=== PATIENT | male | born 1955 | race Caucasian/White ===

== ENCOUNTER 2020-06-01 19:08 | Day surgery (SDC) | payer MEDICARE, OTHER ==
[~2020-06-01] VITALS: Ht 172 cm; Wt 82.7 kg
[2020-06-01] MEDS: NS IV 1000 ML 1,000 ML IV SCH ×2 (10:30→22:30)
[2020-06-01] MEDS ORDERED: BISACODYL 10 MG SUPP (DULCOLAX) PR STA (19:37)
[2020-06-01] MEDS ORDERED: fentaNYL INJ 100 MCG/2 ML AMP IVP ONE ×2 (19:45→21:30)
[2020-06-01] MEDS ORDERED: ONDANSETRON 4 MG/2 ML (SDV) Z0FRAN IVP ONE (19:45)
[2020-06-01 19:49] LABS: BILIRUBIN,URINE NEGATIVE (NEGATIVE); CLARITY,URINE CLEAR; COLOR,URINE AMBER; GLUCOSE, URINE (UA) NEGATIVE (NEGATIVE); KETONES,URINE 2+ (NEGATIVE); LEUKOCYTE ESTERASE ,URINE NEGATIVE (NEGATIVE); NITRITE,URINE NEGATIVE (NEGATIVE); PROTEIN,URINE 1+ (NEGATIVE)
[2020-06-01 20:01] LABS: BASOPHILS # (AUTO) 0.1 10^3/uL (0.0-0.1); BASOPHILS % (AUTO) 0 % (0-10); EOSINOPHILS % (AUTO) 0 % (0-10); HEMATOCRIT 43 % (40-54); HEMOGLOBIN 14.4 g/dL (13.3-17.7); LYMPHOCYTES # (AUTO) 0.7 10^3/uL (1.0-4.0); LYMPHOCYTES % (AUTO) 4 % (12-44); MEAN CORPUSCULAR HEMOGLOBIN 30 pg (25-34); MEAN CORPUSCULAR HGB CONC 33 g/dL (32-36); MEAN CORPUSCULAR VOLUME 90 fL (80-99); MEAN PLATELET VOLUME 8.1 fL (9.0-12.2); MONOCYTES # (AUTO) 0.7 10^3/uL (0.0-1.0); MONOCYTES % (AUTO) 4 % (0-12); NEUTROPHILS # (AUTO) 16.1 10^3/uL (1.8-7.8); NEUTROPHILS % (AUTO) 92 % (42-75); PLATELET COUNT 355 10^3/uL (130-400); WHITE BLOOD COUNT 17.5 10^3/uL (4.3-11.0)
--- NOTE | 2020-06-01 20:05 | ED Abdominal Pain ---
General Chief Complaint: Abdominal/GI Problems Stated Complaint: ABD PAIN / CONSTIPATION / SOA History of Present Illness Date Seen by Provider: Jun 01, 2020 Time Seen by Provider: 19:30 Initial Comments 64-year-old male presents for acute abdominal pain. Patient reports that his pain began on 05/30/2020. He has been having intermittent nausea and vomiting since then he has not been able to eat anything without vomiting. No known history of abdominal problems or surgeries in the past. He does not take any medication. He reports being constipated for the last 4 days, with no flatus. He has tried stool softeners with no success. Timing/Duration: 3-4 Days Severity/Quality: Moderate Location: Generalized Abdomen Radiation: No Radiation Modifying Factors: Improves With Resting, Improves With Vomiting Associated Symptoms: No Back Pain, No Chest Pain, No Diaphoresis, No Fever/Chills, No Headache, No Heartburn; Nausea/Vomiting, Swelling/Mass in Abdomen Allergies and Home Medications Allergies Coded Allergies: No Known Drug Allergies (Unverified , 06/01/20) Patient Home Medication List Home Medication List Reviewed: Yes Review of Systems Review of Systems Constitutional: no symptoms reported, see HPI Gastrointestinal: See HPI, Abdomen Distended, Abdominal Pain, Constipated, Nausea, Poor Appetite; Denies Rectal Bleeding; Vomiting Genitourinary: No Symptoms Reported, See HPI Skin: no symptoms reported, see HPI All Other Systems Reviewed Negative Unless Noted: Yes Past Kusunya-Pxhcjf-Tklspw Hx Past Med/Social Hx: Reviewed Nursing Past Med/Soc Hx Patient Social History Alcohol Use: Denies Use Recent Hopitalizations: No Immunizations Up To Date Tetanus Booster (TDap): Less than 5yrs PED Vaccines UTD: Yes Seasonal Allergies Seasonal Allergies: No Past Medical History Surgeries: No Respiratory: No Cardiac: No Neurological: No Genitourinary: No Gastrointestinal: No Musculoskeletal: No Endocrine: No HEENT: No Cancer: No Psychosocial: No Integumentary: No Blood Disorders: No Physical Exam Vital Signs Vital Signs - First Documented 06/01/20 19:27 Temp 36.8 Pulse 122 Resp 24 B/P (MAP) 166/93 (117) Pulse Ox 98 O2 Delivery Room Air Capillary Refill : Height/Weight/BMI Height: '" Weight: lbs. oz. kg; BMI Method: General Appearance: WD/WN, mild distress (Secondary to pain) HEENT: PERRL/EOMI, normal ENT inspection, TMs normal, pharynx normal, other Neck: non-tender, full range of motion, supple, normal inspection Respiratory: chest non-tender, lungs clear, normal breath sounds Cardiovascular: normal peripheral pulses, regular rate, rhythm Gastrointestinal: no pulsatile mass, abnormal bowel sounds (Hypoactive), distended; No rebound; tenderness, other (Positive Solomon sign) Extremities: normal range of motion, non-tender, normal inspection, normal capillary refill Neurologic/Psychiatric: no motor/sensory deficits, alert, normal mood/affect, oriented x 3 Skin: normal color, warm/dry Progress/Results/Core Measures Results/Orders Lab Results Laboratory Tests Test 06/01/20 19:42 06/01/20 19:52 Range/Units Urine Color MARC H Urine Clarity CLEAR Urine pH 7.0 5-9 Urine Specific [place] 1.020 1.016-1.022 Urine Protein 1+ H NEGATIVE Urine Glucose (UA) NEGATIVE NEGATIVE Urine Ketones 2+ H NEGATIVE Urine Nitrite NEGATIVE NEGATIVE Urine Bilirubin NEGATIVE NEGATIVE Urine Urobilinogen 1.0 < = 1.0 MG/DL Urine Leukocyte Esterase NEGATIVE NEGATIVE Urine RBC (Auto) NEGATIVE NEGATIVE Urine RBC NONE /HPF Urine WBC NONE /HPF Urine Crystals NONE /LPF Urine Bacteria TRACE /HPF Urine Casts NONE /LPF Urine Mucus LARGE H /LPF Urine Culture Indicated NO White Blood Count 17.5 H 4.3-11.0 10^3/uL Red Blood Count 4.79 4.30-5.52 10^6/uL Hemoglobin 14.4 13.3-17.7 g/dL Hematocrit 43 40-54 % Mean Corpuscular Volume 90 80-99 fL Mean Corpuscular Hemoglobin 30 25-34 pg Mean Corpuscular Hemoglobin Concent 33 32-36 g/dL Red Cell Distribution Width 12.0 10.0-14.5 % Platelet Count 355 130-400 10^3/uL Mean Platelet Volume 8.1 L 9.0-12.2 fL Immature Granulocyte % (Auto) 0 % Neutrophils (%) (Auto) 92 H 42-75 % Lymphocytes (%) (Auto) 4 L 12-44 % Monocytes (%) (Auto) 4 0-12 % Eosinophils (%) (Auto) 0 0-10 % Basophils (%) (Auto) 0 0-10 % Neutrophils # (Auto) 16.1 H 1.8-7.8 10^3/uL Lymphocytes # (Auto) 0.7 L 1.0-4.0 10^3/uL Monocytes # (Auto) 0.7 0.0-1.0 10^3/uL Eosinophils # (Auto) 0.0 0.0-0.3 10^3/uL Basophils # (Auto) 0.1 0.0-0.1 10^3/uL Immature Granulocyte # (Auto) 0.1 0.0-0.1 10^3/uL Neutrophils % (Manual) 91 % Lymphocytes % (Manual) 7 % Monocytes % (Manual) 2 % Blood Morphology Comment NORMAL Prothrombin Time 14.2 12.2-14.7 SEC INR Comment 1.1 0.8-1.4 Activated Partial Thromboplast Time 29 24-35 SEC Sodium Level 137 135-145 MMOL/L Potassium Level 4.1 3.6-5.0 MMOL/L Chloride Level 98 98-107 MMOL/L Carbon Dioxide Level 29 21-32 MMOL/L Anion Gap 10 5-14 MMOL/L Blood Urea Nitrogen 16 7-18 MG/DL Creatinine 1.03 0.60-1.30 MG/DL Estimat Glomerular Filtration Rate > 60 BUN/Creatinine Ratio 16 Glucose Level 154 H 70-105 MG/DL Calcium Level 9.3 8.5-10.1 MG/DL Corrected Calcium 9.1 8.5-10.1 MG/DL Total Bilirubin 2.9 H 0.1-1.0 MG/DL Aspartate Amino Transf (AST/SGOT) 191 H 5-34 U/L Alanine Aminotransferase (ALT/SGPT) 160 H 0-55 U/L Alkaline Phosphatase 185 H 40-136 U/L C-Reactive Protein High Sensitivity 12.08 H 0.00-0.50 MG/DL B-Type Natriuretic Peptide < 10.0 <100.0 PG/ML Total Protein 7.3 6.4-8.2 GM/DL Albumin 4.2 3.2-4.5 GM/DL Amylase Level 38 25-125 U/L My Orders Orders - CRIS NICOLAS Ct Abdomen/Pelvis Wo (06/01/20 19:37) Amylase (06/01/20 19:37) BNP (06/01/20 19:37) Cbc With Automated Diff (06/01/20 19:37) Comprehensive Metabolic Panel (06/01/20 19:37) Hs C Reactive Protein (06/01/20 19:37) Protime With Inr (06/01/20 19:37) Partial Thromboplastin Time (06/01/20 19:37) Ua Culture If Indicated (06/01/20 19:37) Ondansetron Injection (Zofran Injectio (06/01/20 19:45) Bisacodyl Suppository (Dulcolax Supposit (06/01/20 19:37) Fentanyl Inj (Sublimaze Injection) (06/01/20 19:45) Manual Differential (06/01/20 19:52) Ed Iv/Invasive Line Start (06/01/20 20:35) Ns Iv 1000 Ml (Sodium Chloride 0.9%) (06/01/20 20:45) Lipase (06/01/20 20:59) Medications Given in ED Current Medications Medications Dose Ordered Sig/Shaun Route Start Time Stop Time Status Last Admin Dose Admin Fentanyl Citrate 25 mcg ONCE ONCE IVP 06/01/20 19:45 06/01/20 19:46 DC 06/01/20 20:23 25 MCG Ondansetron HCl 8 mg ONCE ONCE IVP 06/01/20 19:45 06/01/20 19:46 DC 06/01/20 20:23 8 MG Vital Signs/I&O 06/01/20 19:27 Temp 36.8 Pulse 122 Resp 24 B/P (MAP) 166/93 (117) Pulse Ox 98 O2 Delivery Room Air Progress Progress Note : Time: 19:30 Progress Note Patient seen and evaluated. Will obtain CT abdomen, labs, normal saline 1 L IV, Zofran 8 mg IV and fentanyl 25 mcg IV. 2014 patient reports some improvement in his pain since receiving the fentanyl. Labs show elevated white count, awaiting CT. 2099 CT shows cholecystitis. Discussed patient's labs, CT and exam with Dr. Meadows by phone, recommended admission and plan for laparoscopic cholecystectomy tomorrow. Discussed this with the patient and his they are in agreement with this plan. Patient to be admitted by Dr. Meadows and will have consult with hospitalist. Talk to Dr. Das, agreeable and will have Dr. Rasmussen see patient in the morning. Zosyn for antibiotic per Dr. Meadows. Will start now. 2114 patient reporting increased abdominal pain, will give fentanyl 50 mcg IV. Diagnostic Imaging Diagonstic Imaging: CT Plain Films/CT/US/NM/MRI: abdomen, pelvis Comments NAME: QI [facility]ILLIL[facility] II [facility] REC#: [id number] PT STATUS: REG ER : 1955 PHYSICIAN: CRIS NICOLAS ADMIT DATE: 06/01/20/ER Draft Date of Exam:06/01/20 CT ABDOMEN/PELVIS WO EXAMINATION: CT Abdomen Pelvis without contrast. TECHNIQUE: Multiple contiguous axial images were obtained through the abdomen and pelvis without the use of intravenous contrast. All CT scans use one or more of the following dose optimizing techniques: automated exposure control, MA and/or KvP adjustment based on a patient size and exam type, or iterative reconstruction. HISTORY: abd pain, constipation, vomiting COMPARISON: None available. FINDINGS: Lung bases: Bibasilar dependent atelectasis. There is a 0.3 cm left lower lobe subpleural pulmonary nodule. Solid organs: The liver is normal. There is mild gallbladder wall thickening and surrounding inflammatory stranding. There is no biliary ductal dilation. Pancreas is normal. There are multiple calcified granulomas within the spleen. Adrenal glands are normal. The kidneys are normal without visualized calculus or hydronephrosis. Bowel: There is mild wall thickening and inflammation near the 2nd portion of the duodenum. The bowel is otherwise unremarkable without obstruction. There are a few scattered colonic diverticula. No findings of acute appendicitis. Peritoneum: There is no intraperitoneal free fluid or free air. No suspicious lymphadenopathy. Vasculature: Calcification of the aorta without aneurysm. Musculoskeletal: Degenerative changes of the spine without suspicious osseous lesion or compression fracture. Pelvis: The prostate gland is normal. The urinary bladder is normal. IMPRESSION: 1. Gallbladder wall thickening and surrounding inflammation concerning for acute cholecystitis. Recommend correlation with gallbladder ultrasound. 2. Mild wall thickening of the 2nd portion of the duodenum may be reactive. Dictated on workstation # [id number] Dict: 06/01/202003 Trans: 06/01/202010 CVB [id number] Interpreted by: MARTY ARGUETA DO Electronically signed by: Reviewed: Reviewed by Me Departure Impression Primary Impression: Nausea and vomiting Qualified Codes: R11.14 - Bilious vomiting Additional Impressions: Abdominal wall pain Constipation Qualified Codes: K59.00 - Constipation, unspecified Disposition: ADMITTED INPATIENT Condition: Stable Admissions Decision to Admit Reason: Admit from ER (General) Decision to Admit/Date: Jun 01, 2020 Time/Decision to Admit Time: 21:00 Departure-Patient Inst. Referrals: [facility] – [place] NO,LOCAL PHYSICIAN (PCP) Primary Care Physician Copy Copies To 1: TONY MEADOWS AMY ARNP Jun 01, 2020 20:05
[2020-06-01 20:12] LABS: ALBUMIN 4.2 GM/DL (3.2-4.5)
--- NOTE | 2020-06-01 20:12 | Diagnostic Imaging Report ---
EXAMINATION: CT Abdomen Pelvis without contrast. TECHNIQUE: Multiple contiguous axial images were obtained through the abdomen and pelvis without the use of intravenous contrast. All CT scans use one or more of the following dose optimizing techniques: automated exposure control, MA and/or KvP adjustment based on a patient size and exam type, or iterative reconstruction. HISTORY: abd pain, constipation, vomiting COMPARISON: None available. FINDINGS: Lung bases: Bibasilar dependent atelectasis. There is a 0.3 cm left lower lobe subpleural pulmonary nodule. Solid organs: The liver is normal. There is mild gallbladder wall thickening and surrounding inflammatory stranding. There is no biliary ductal dilation. Pancreas is normal. There are multiple calcified granulomas within the spleen. Adrenal glands are normal. The kidneys are normal without visualized calculus or hydronephrosis. Bowel: There is mild wall thickening and inflammation near the 2nd portion of the duodenum. The bowel is otherwise unremarkable without obstruction. There are a few scattered colonic diverticula. No findings of acute appendicitis. Peritoneum: There is no intraperitoneal free fluid or free air. No suspicious lymphadenopathy. Vasculature: Calcification of the aorta without aneurysm. Musculoskeletal: Degenerative changes of the spine without suspicious osseous lesion or compression fracture. Pelvis: The prostate gland is normal. The urinary bladder is normal. IMPRESSION: 1. Gallbladder wall thickening and surrounding inflammation concerning for acute cholecystitis. Recommend correlation with gallbladder ultrasound. 2. Mild wall thickening of the 2nd portion of the duodenum may be reactive. Dictated by: Dictated on workstation # [id number]
[2020-06-01 20:13] LABS: AMYLASE 38 U/L (25-125); CALCIUM 9.3 MG/DL (8.5-10.1)
[2020-06-01 20:14] LABS: GLUCOSE 154 MG/DL (70-105)
[2020-06-01 20:15] LABS: TOTAL PROTEIN 7.3 GM/DL (6.4-8.2)
[2020-06-01 20:16] LABS: BILIRUBIN,TOTAL 2.9 MG/DL (0.1-1.0); CARBON DIOXIDE 29 MMOL/L (21-32)
[2020-06-01 20:18] LABS: ALKALINE PHOSPHATASE 185 U/L (40-136); CREATININE SERUM 1.03 MG/DL (0.60-1.30); GFR ESTIMATED > 60
[2020-06-01 20:19] LABS: BUN/CREATININE RATIO 16
[2020-06-01 20:21] LABS: BACTERIA,URINE TRACE /HPF
[2020-06-01 20:21] LABS: ALANINE AMINOTRANSFERASE 160 U/L (0-55)
[2020-06-01 20:27] LABS: INR 1.1 (0.8-1.4); PROTHROMBIN TIME PATIENT 14.2 SEC (12.2-14.7)
[2020-06-01 20:31] LABS: CHLORIDE 98 MMOL/L (98-107); POTASSIUM 4.1 MMOL/L (3.6-5.0); SODIUM 137 MMOL/L (135-145)
[2020-06-01] MEDS ORDERED: NS IV 1000 ML 1,000 ML IV SCH (20:45)
[2020-06-01 20:57] LABS: LYMPHOCYTES % (MANUAL) 7 %; MONOCYTES % (MANUAL) 2 %; NEUTROPHILS % (MANUAL) 91 %; RBC MORPH NORMAL
[2020-06-01] MEDS ORDERED: PIPERACILLIN/TAZOBACTAM (BULK) 4.5 GM in NS (IVPB) 100 ML IV ONE (21:15)
[2020-06-01] MEDS ORDERED: PIPERACILLIN SODIUM/TAZOBACTAM 4.5 GM in NS (IVPB) 100 ML IV ONE (21:30)
[2020-06-01 22:07] VITALS: BP 126/65
[2020-06-01 23:43] VITALS: BP 103/64
[2020-06-01] MEDS ORDERED: ONDANSETRON 4 MG/2 ML (SDV) Z0FRAN IV PRN (23:45)
[2020-06-01] MEDS ORDERED: fentaNYL INJ 100 MCG/2 ML AMP IV PRN (23:45)
[2020-06-01] MEDS ORDERED: ACETAMINOPHEN 325 MG TABLET PO PRN (23:45)
[2020-06-02] VITALS (9 sets, daily range): BP systolic 94–133; BP diastolic 52–78
[2020-06-02] MEDS ORDERED: NS (IVPB) 100 ML ONE (03:53)
[2020-06-02] MEDS ORDERED: PIPERACILLIN/TAZO 4.5 GM VIAL (ZOSYN) IV ONE (03:53)
[2020-06-02] MEDS ORDERED: PIPERACILLIN/TAZO 4.5 GM/NS 100 ML IV SCH ×2 (04:00)
[2020-06-02 05:49] LABS: BASOPHILS % (AUTO) 0 % (0-10); EOSINOPHILS % (AUTO) 0 % (0-10); HEMATOCRIT 37 % (40-54); HEMOGLOBIN 12.5 g/dL (13.3-17.7); LYMPHOCYTES # (AUTO) 0.4 10^3/uL (1.0-4.0); LYMPHOCYTES % (AUTO) 2 % (12-44); MEAN CORPUSCULAR HEMOGLOBIN 30 pg (25-34); MEAN CORPUSCULAR HGB CONC 34 g/dL (32-36); MEAN CORPUSCULAR VOLUME 90 fL (80-99); MEAN PLATELET VOLUME 8.4 fL (9.0-12.2); MONOCYTES # (AUTO) 0.5 10^3/uL (0.0-1.0); MONOCYTES % (AUTO) 3 % (0-12); NEUTROPHILS # (AUTO) 16.1 10^3/uL (1.8-7.8); NEUTROPHILS % (AUTO) 94 % (42-75); PLATELET COUNT 251 10^3/uL (130-400); WHITE BLOOD COUNT 17.1 10^3/uL (4.3-11.0)
[2020-06-02] MEDS ORDERED: FLEET ENEMA ADULT 1 EA BTL PR PRN (06:00)
[2020-06-02 06:09] LABS: NEUTROPHILS % (MANUAL) 80 %
[2020-06-02 06:10] LABS: BAND NEUTROPHILS 13 %; LYMPHOCYTES % (MANUAL) 5 %; MONOCYTES % (MANUAL) 2 %; RBC MORPH NORMAL
[2020-06-02 06:15] LABS: ALANINE AMINOTRANSFERASE 191 U/L (0-55); ALBUMIN 3.3 GM/DL (3.2-4.5); ALKALINE PHOSPHATASE 178 U/L (40-136); BILIRUBIN,TOTAL 4.9 MG/DL (0.1-1.0); BUN/CREATININE RATIO 14; CALCIUM 8.1 MG/DL (8.5-10.1); CARBON DIOXIDE 23 MMOL/L (21-32); CHLORIDE 104 MMOL/L (98-107); CREATININE SERUM 0.91 MG/DL (0.60-1.30); GFR ESTIMATED > 60; GLUCOSE 112 MG/DL (70-105); POTASSIUM 3.9 MMOL/L (3.6-5.0); SODIUM 138 MMOL/L (135-145); TOTAL PROTEIN 5.8 GM/DL (6.4-8.2)
--- NOTE | 2020-06-02 06:27 | History & Physical-Surgical ---
RON[facility] WATERS MED STUDENT 06/02/20 0627: History of Present Illness History of Present Illness Reason for visit/HPI Sen Dumont is an otherwise healthy 60 y.o. M, last doctor visit 10 years ago, admitted to the hospital from the ER last night after symptoms and CT abdomen indicate cholecystitis. The patient reports 4 days of worsening cramping abdominal pain initially beginning after dinner Saturday night, with multiple episodes of vomiting as well as constipation without passage of flatus or stool since onset. The patient denies other complaints. Nurse stated the patient spiked a fever last night improved after 650mg tylenol. Sen denies pain since admission to the hospital, had a small bowel movement this morning just after talking to me. He notes he did receive COVID vaccine, 2nd dose was 3 weeks ago. Date of Admission Jun 01, 2020 at 21:00 Date Seen by a Provider: Jun 02, 2020 Time Seen by a Provider: 06:00 I consulted on this patient on 06/01/20 21:41 Attending Physician Tony Meadows DO Admitting Physician Dolly,Local Physician Consult Allergies and Home Medications Allergies Coded Allergies: No Known Drug Allergies (Unverified , 06/01/20) Past Obqjqvt-Vdpapd-Abzafg Hx Patient Social History Smoking Status: Former Smoker Former Smoker, Quit: Jun 02, 1980 Recent Hopitalizations: No Alcohol Use?: No Have you traveled recently?: No Immunizations Up To Date Tetanus Booster (TDap): Less than 5yrs PED Vaccines UTD: Yes Seasonal Allergies Seasonal Allergies: No Surgeries History of Surgeries: No Respiratory History of Respiratory Disorde: No Cardiovascular History of Cardiac Disorders: No Neurological History of Neurological Disord: No Genitourinary History of Genitourinary Disor: No Gastrointestinal History of Gastrointestinal Di: No Musculoskeletal History of Musculoskeletal Dis: No Endocrine History of Endocrine Disorders: No HEENT History of HEENT Disorders: No Cancer History of Cancer: No Psychosocial History of Psychiatric Problem: No Integumentary History of Skin or Integumenta: No Blood Transfusions History of Blood Disorders: No Family Medical History Significant Family History: CAD Over 55 Years Old (father AR, first at 70 yo, at 93 y.o. "of old age") Other Mother - 93 yo Father - 93 yo, multiple MIs, first at about 70 yo Sister - cholecystectomy Review of Systems Constitutional: no symptoms reported EENTM: no symptoms reported Respiratory: short of breath Gastrointestinal: abdominal pain (RUQ and epigastric, now resolved), constipation (states does not feel constipated anymore), nausea, vomiting (not currently nauseous) Genitourinary: No pain Musculoskeletal: No back pain Skin: no symptoms reported Psychiatric/Neurological: No Symptoms Reported Physical Exam Vital Signs Vital Signs - First Documented 06/01/20 19:27 Temp 36.8 Pulse 122 Resp 24 B/P (MAP) 166/93 (117) Pulse Ox 98 O2 Delivery Room Air Capillary Refill : Less Than 3 Seconds Height, Weight, BMI Height: '" Weight: lbs. oz. kg; 27.95 BMI Method: General Appearance: No Apparent Distress, WD/WN HEENT: PERRL/EOMI, TMs Normal, Normal ENT Inspection, Pharynx Normal Neck: Full Range of Motion, Normal Inspection Respiratory: Chest Non Tender, Lungs Clear, Normal Breath Sounds, No Accessory Muscle Use, No Respiratory Distress Cardiovascular: Regular Rate, Rhythm, No Edema, No JVD, No Murmur, Normal Peripheral Pulses, Gallop/S3 Gastrointestinal: No Pulsatile Mass, Soft, Abnormal Bowel Sounds (hyperactive (pt passed bm after talking to me)); No Distended, No Guarding, No Rebound; Tenderness (mild left periumbilical tenderness, minimal RUQ tenderness) Rectal: Deferred Extremity: Normal Capillary Refill, Normal Range of Motion, Non Tender, No Pedal Edema, Other (dry skin at bilateral Lower extremities) Neurologic/Psychiatric: Alert, Oriented x3, No Motor/Sensory Deficits, Normal Mood/Affect Skin: Normal Color, Warm/Dry Lymphatic: No Adenopathy Data Review Labs Laboratory Tests 06/01/20 19:42: Urine Color AMBERH, Urine Clarity CLEAR, Urine pH 7.0, Urine Specific [place] 1.020, Urine Protein 1+H, Urine Glucose (UA) NEGATIVE, Urine Ketones 2+H, Urine Nitrite NEGATIVE, Urine Bilirubin NEGATIVE, Urine Urobilinogen 1.0, Urine Leukocyte Esterase NEGATIVE, Urine RBC (Auto) NEGATIVE, Urine RBC NONE, Urine WBC NONE, Urine Crystals NONE, Urine Bacteria TRACE, Urine Casts NONE, Urine Mucus LARGEH, Urine Culture Indicated NO 06/01/20 19:52: White Blood Count 17.5H, Red Blood Count 4.79, Hemoglobin 14.4, Hematocrit 43, Mean Corpuscular Volume 90, Mean Corpuscular Hemoglobin 30, Mean Corpuscular Hemoglobin Concent 33, Red Cell Distribution Width 12.0, Platelet Count 355, Mean Platelet Volume 8.1L, Immature Granulocyte % (Auto) 0, Neutrophils (%) (Auto) 92H, Lymphocytes (%) (Auto) 4L, Monocytes (%) (Auto) 4, Eosinophils (%) (Auto) 0, Basophils (%) (Auto) 0, Neutrophils # (Auto) 16.1H, Lymphocytes # (Auto) 0.7L, Monocytes # (Auto) 0.7, Eosinophils # (Auto) 0.0, Basophils # (Auto) 0.1, Immature Granulocyte # (Auto) 0.1, Neutrophils % (Manual) 91, Lymphocytes % (Manual) 7, Monocytes % (Manual) 2, Blood Morphology Comment NORMAL, Prothrombin Time 14.2, INR Comment 1.1, Activated Partial Thromboplast Time 29, Sodium Level 137, Potassium Level 4.1, Chloride Level 98, Carbon Dioxide Level 29, Anion Gap 10, Blood Urea Nitrogen 16, Creatinine 1.03, Estimat Glomerular Filtration Rate > 60, BUN/Creatinine Ratio 16, Glucose Level 154H, Calcium Level 9.3, Corrected Calcium 9.1, Total Bilirubin 2.9H, Aspartate Amino Transf (AST/SGOT) 191H, Alanine Aminotransferase (ALT/SGPT) 160H, Alkaline Phosphatase 185H, C-Reactive Protein High Sensitivity 12.08H, B-Type Natriuretic Peptide < 10.0, Total Protein 7.3, Albumin 4.2, Amylase Level 38 06/01/20 21:05: Lipase 19 06/02/20 05:39: White Blood Count 17.1H, Red Blood Count 4.13L, Hemoglobin 12.5L, Hematocrit 37L , Mean Corpuscular Volume 90, Mean Corpuscular Hemoglobin 30, Mean Corpuscular Hemoglobin Concent 34, Red Cell Distribution Width 12.1, Platelet Count 251, Mean Platelet Volume 8.4L, Immature Granulocyte % (Auto) 0, Neutrophils (%) (Auto) 94H, Lymphocytes (%) (Auto) 2L, Monocytes (%) (Auto) 3, Eosinophils (%) (Auto) 0, Basophils (%) (Auto) 0, Neutrophils # (Auto) 16.1H, Lymphocytes # (Auto) 0.4L, Monocytes # (Auto) 0.5, Eosinophils # (Auto) 0.0, Basophils # (Auto) 0.0, Immature Granulocyte # (Auto) 0.1, Neutrophils % (Manual) 80, Lymphocytes % (Manual) 5, Monocytes % (Manual) 2, Blood Morphology Comment NORMAL, Sodium Level 138, Potassium Level 3.9, Chloride Level 104, Carbon Dioxide Level 23, Anion Gap 11, Blood Urea Nitrogen 13, Creatinine 0.91, Estimat Glomerular Filtration Rate > 60, BUN/Creatinine Ratio 14, Glucose Level 112H, Calcium Level 8.1L, Corrected Calcium 8.7, Total Bilirubin 4.9#H, Aspartate Amino Transf (AST/SGOT) 136H, Alanine Aminotransferase (ALT/SGPT) 191H, Alkaline Phosphatase 178H, Total Protein 5.8L, Albumin 3.3, Band Neutrophils 13 Assessment/Plan Assessment/Plan Admission Diagonsis cholecystitis Assessment/Plan Assessment & Plan cholecystitis -CT AP read GB wall thicking, Duodenal part 2 wall thickening consistent with cholecystitis -initial presenting S/sx of cholecytitis -plan for cholecystectomy today constipation -received suppository in ED -now resolved Transaminitis -likely related to inflammation near GB -hold Tylenol CT findings of bibasilar atelectasis, 0.3 cm LL lobe nodule -atelectasis likely d/t recent breath splinting -monitor with postoperative CXR -followup on LL lobe nodule; CXR to screen for other pulmonary nodules TONY MEADOWS DO 06/02/20 0909: History of Present Illness History of Present Illness Reason for visit/HPI Surgery asked to admit regarding Acute Cholecystitis. HPI per ED: 64-year-old male presents for acute abdominal pain. Patient reports that his pain began on 05/30/2020. He has been having intermittent nausea and vomiting since then he has not been able to eat anything without vomiting. No known history of abdominal problems or surgeries in the past. He does not take any medication. He reports being constipated for the last 4 days, with no flatus. He has tried stool softeners with no success. Timing/Duration: 3-4 Days Severity/Quality: Moderate Location: Generalized Abdomen Radiation: No Radiation Modifying Factors: Improves With Resting, Improves With Vomiting Associated Symptoms: No Back Pain, No Chest Pain, No Diaphoresis, No Fever/Chills, No Headache, No Heartburn; Nausea/Vomiting, Swelling/Mass in Abdomen When I spoke to pt he stated he had BM, but still had some minimal RUQ pain. He has never had this before or been told he has GB problems. Pt states he hasn't been to a doctor in at least 10 yrs. Time Seen by a Provider: 08:10 Allergies and Home Medications Allergies Coded Allergies: No Known Drug Allergies (Unverified , 06/01/20) Patient Home Medication List Home Medication List Reviewed: Yes Past Bxcurau-Dyypwy-Iywhyp Hx Patient Social History Smoking Status: Former Smoker Alcohol Use?: No Seasonal Allergies Seasonal Allergies: Yes Surgeries History of Surgeries: No Respiratory History of Respiratory Disorde: No Cardiovascular History of Cardiac Disorders: No Neurological History of Neurological Disord: No Reproductive System Hx Reproductive Disorders: No Genitourinary History of Genitourinary Disor: No Gastrointestinal History of Gastrointestinal Di: No Musculoskeletal History of Musculoskeletal Dis: No Endocrine History of Endocrine Disorders: No HEENT History of HEENT Disorders: No Loss of Vision: Denies Hearing Impairment: Denies Cancer History of Cancer: No Psychosocial History of Psychiatric Problem: No Integumentary History of Skin or Integumenta: No Family Medical History Significant Family History: CAD Over 55 Years Old (father AR, first at 70 yo, at 93 y.o. "of old age") Review of Systems Constitutional: No chills; fever, malaise EENTM: No blurred vision, No double vision, No mouth pain, No mouth swelling, No epistaxis Respiratory: No dyspnea on exertion, No hemoptysis; short of breath Cardiovascular: No chest pain, No edema, No palpitations Gastrointestinal: abdominal pain (RUQ and epigastric, now resolved), consti pation (states does not feel constipated anymore); No jaundice; nausea, vomiting (not currently nauseous) Genitourinary: No dysuria, No frequency, No hematuria Musculoskeletal: No back pain, No joint pain, No muscle stiffness Skin: No change in color, No change in hair/nails Psychiatric/Neurological: Denies Anxiety, Denies Depressed, Denies Seizure, Denies Tremors HEMATOLOGIC Pt denies any hx of abnormal bleeding or bruising. Physical Exam General Appearance: No Apparent Distress, WD/WN Eyes: Bilateral Eye PERRL, Bilateral Eye EOMI HEENT: Moist Mucous Membranes; No Pale Conjunctivae (L), No Pale Conjunctivae (R), No Scleral Icterus (L), No Scleral Icterus (R) Neck: Full Range of Motion, Non Tender, Supple Respiratory: Chest Non Tender, Lungs Clear, Normal Breath Sounds, No Accessory Muscle Use, No Respiratory Distress Cardiovascular: Regular Rate, Rhythm, No Murmur Gastrointestinal: Abnormal Bowel Sounds (hyperactive (pt passed bm after talking to me)); No Distended, No Guarding; Hernia (umbilical); No Rebound; Tenderness (mild left periumbilical tenderness, minimal RUQ tenderness) Rectal: Deferred Back: No CVA Tenderness, No Vertebral Tenderness Extremity: Normal Capillary Refill, Non Tender, No Calf Tenderness, No Pedal Edema Neurologic/Psychiatric: Alert, Oriented x3, No Motor/Sensory Deficits, Normal Mood/Affect Skin: Normal Color, Warm/Dry Lymphatic: No Adenopathy (neck, axilla or groin) Data Review Radiology Date of Exam:06/01/20 CT ABDOMEN/PELVIS WO EXAMINATION: CT Abdomen Pelvis without contrast. TECHNIQUE: Multiple contiguous axial images were obtained through the abdomen and pelvis without the use of intravenous contrast. All CT scans use one or more of the following dose optimizing techniques: automated exposure control, MA and/or KvP adjustment based on a patient size and exam type, or iterative reconstruction. HISTORY: abd pain, constipation, vomiting COMPARISON: None available. FINDINGS: Lung bases: Bibasilar dependent atelectasis. There is a 0.3 cm left lower lobe subpleural pulmonary nodule. Solid organs: The liver is normal. There is mild gallbladder wall thickening and surrounding inflammatory stranding. There is no biliary ductal dilation. Pancreas is normal. There are multiple calcified granulomas within the spleen. Adrenal glands are normal. The kidneys are normal without visualized calculus or hydronephrosis. Bowel: There is mild wall thickening and inflammation near the 2nd portion of the duodenum. The bowel is otherwise unremarkable without obstruction. There are a few scattered colonic diverticula. No findings of acute appendicitis. Peritoneum: There is no intraperitoneal free fluid or free air. No suspicious lymphadenopathy. Vasculature: Calcification of the aorta without aneurysm. Musculoskeletal: Degenerative changes of the spine without suspicious osseous lesion or compression fracture. Pelvis: The prostate gland is normal. The urinary bladder is normal. IMPRESSION: 1. Gallbladder wall thickening and surrounding inflammation concerning for acute cholecystitis. Recommend correlation with gallbladder ultrasound. 2. Mild wall thickening of the 2nd portion of the duodenum may be reactive. Dictated by: Dictated on workstation # [id number] Dict: 06/01/202003 Trans: 06/01/202106 [facility] [id number] Interpreted by: MARTY ARGUETA DO Electronically signed by: MARTY ARGUETA DO 06/01/202106 Assessment/Plan Assessment/Plan Admission Diagonsis Acute Cholecystitis Admission Status: Observation Assessment/Plan Acute cholecystitis -Plan for laparoscopic cholecystectomy possible cholangiogram, possible open. Discussed the procedure with pt, risks and complications not limited to; pain, bleeding, infection, scar, damage to bowel or bile duct and need for further procedure. All questions answered to his satisfaction. Constipation -increase fluids and ambulation Transaminitis -likely related to inflammation near GB -hold Tylenol CT findings of bibasilar atelectasis, 0.3 cm LL lobe nodule -atelectasis likely d/t recent breath splinting -monitor with postoperative CXR -followup on LL lobe nodule; CXR to screen for other pulmonary nodules Supervisory-Addendum Brief Verification & Attestation Participated in pt care: history, MDM, physical Personally performed: exam, history, MDM Care discussed with: Medical Student Procedures: n/a Verification and Attestation of Medical Student E/M Service A medical student performed and documented this service. I then reviewed and verified all information documented by the medical student and made modifications to such information, when appropriate. I personally performed a physical exam, medical decision making and then discussed any differences between the notes and made revisions as necessary to create one note. Tony Meadows , 06/02/20 , 09:13 [facility] WATERS MED STUDENT Jun 02, 2020 06:27 TONY MAEDOWS DO Jun 02, 2020 09:09
[2020-06-02] MEDS: NS IV 1000 ML 1,000 ML IV SCH (06:58)
[2020-06-02] MEDS ORDERED: IOPAMIDOL 61% 30 ML (ISOVUE 300) VIAL ONE (09:35)
[2020-06-02] MEDS ORDERED: LIDOCAINE/EPI 1%-1:100,000 (XYLOCAINE) 20ML ONE (09:35)
[2020-06-02] MEDS ORDERED: MIDAZOLAM 2 MG/2 ML (VERSED) VIAL ONE (09:55)
[2020-06-02] MEDS ORDERED: fentaNYL INJ 100 MCG/2 ML AMP ONE (09:55)
[2020-06-02] MEDS ORDERED: LACTATED RINGERS 1,000 ML IV PRN (10:30)
[2020-06-02] MEDS ORDERED: LIDOCAINE PF 2% 5 ML (XYLOCAINE) VIAL ONE (10:44)
[2020-06-02] MEDS ORDERED: GLYCOPYRROLATE 0.2 MG/ML (ROBINUL) 2 ML VIAL ONE (10:44)
[2020-06-02] MEDS ORDERED: proPOfol 200 MG/20 ML (DIPRIVAN) VIAL IV ONE (10:44)
[2020-06-02] MEDS ORDERED: ROCURONIUM 10 MG/ML 5 ML SYRINGE IV ONE (10:44)
[2020-06-02] MEDS ORDERED: ONDANSETRON 4 MG/2 ML (SDV) Z0FRAN ONE (10:44)
[2020-06-02] MEDS ORDERED: SEVOFLURANE (ULTANE) 15 ML INHAL SOLN ONE (10:44)
[2020-06-02] MEDS ORDERED: NEOSTIGMINE 3 MG/3 ML VIAL ONE (10:44)
[2020-06-02] MEDS ORDERED: HYDROmorphone 2 MG/ML VIAL (DILAUDID) ONE (10:45)
--- NOTE | 2020-06-02 10:52 | Progress Note-Post Operative ---
Post-Operative Progess Note Surgeon (s)/Finance Business Manager (s) Surgeon TONY MEADOWS DO Finance Business Manager: [place] Pre-Operative Diagnosis Acute Cholecystitis Post-Operative Diagnosis Acute Cholecystitis/Cholelithiasis Hydrops of gallbladder Procedure & Operative Findings Date of Procedure 06/02/20 Procedure Performed/Findings PROCEDURE: Laparoscopic cholecystectomy with intraoperative cholangiogram. COMPLICATIONS: None. PROCEDURE: The patient was taken to the operating suite and was prepped and draped in sterile fashion. A surgical pause was performed. Just superior to the umbilicus, a 12 mm incision was made. Dissection was taken down to the fascia, which was then scored and grasped with a Jv and the abdomen was then entered. A 0 Vicryl suture was placed in a [id number]-[id number] fashion and a Tomas trocar was placed and secured. Pneumoperitoneum was achieved. A 5mm trochar place in the subxyphoid and 2 in the right upper quadrant. The gallbladder was very emeatous, with adhesions and thickened wall; this was definitely an acute gallbladder. It was then grasped and elevated. The cystic duct, and cystic artery were then dissected out. Clip was placed on the distal portion of the cystic duct which was then partially transected. An arrow catheter was inserted into the duct. The cholangiogram was then performed. No filing defects and contrast made its way into the duodenum. Catheter removed. Clips were placed on proximal portion of the cystic duct and then the duct was then transected. Clips were placed along the proximal and distal portion of the cystic artery which was then transected. Hook cautery was used to dissect the gallbladder from the gallbladder fossa achieving hemostasis. The gallbladder was placed in an Endobag and removed through the 12 mm trocar site. The abdomen was then reinspected. Copious amounts of irrigation were used to irrigate the abdomen and there were no signs of active bleeding. Hemostasis had been achieved. The 12 mm fascial defect was then closed with 0 Vicryl suture that had been placed in a [id number]-[id number] fashion. The abdomen was then desufflated, the trocars were removed. The abdomen was then washed and dried. The skin was then closed using 4-0 Monocryl in a subcuticular fashion. The abdomen was washed and dried and Skin Affix was place over incisions. Patient tolerated the procedure well without any complications and was taken to the recovery room in stable condition. Dr. Pizarro assisted on this case helping to make incision, close incisions, identify anatomy and hold anatomy out of the way. Anesthesia Type GET Estimated Blood Loss Estimated blood loss (mL): less than 10ml Specimens/Packing Specimens Removed GB and contents TONY MEADOWS DO Jun 02, 2020 10:52
[2020-06-02] MEDS ORDERED: ACHD5005 PO (10:53)
--- NOTE | 2020-06-02 10:54 | Discharge Inst-Surgical ---
Discharge Inst-Surgical Depart Medication/Instructions New, Converted or Re-Newed RX: RX Given to Pt/Family Patient Instructions Follow up Appt: Make appointment for 1 week. [phone] Instructions: No lifting greater than 20 pounds. No strenuous activity. May shower in 24 hours, no tub bath or soaking. Use incentive spirometer at home as directed. No Smoking Skin/Wound Care: May remove bandages in am. You need to leave the Dermabond on incision it will fall off on it's own. Symptoms to Report: Appetite Changes, Extremity Discoloration, Numbness/Tingling, Swelling Increased, Bleeding Excessive, Eyesight Changes, Pain Increased, Urine Color Change, Constipation(Persistent), Fever over 101 degree F, Pain/Pressure in chest, Urinating Difficulty, Cough Up/Vomit Blood, Heart Beat Irreg/Pounding, Pain/Pressure in jaw, Cramps in feet or legs, Lightheadedness, Pain/Pressure in shoulder, Diarrhea(Persistent), Memory Changes Suddenly, Questions/Concerns, Weight gain consecutive days, Dizziness/Fainting, Nausea/Vomiting, Shortness of Breath, Weight gain over 2 pounds If questions or concerns contact your physician Or seek help at emergency department. Activity Activity as Tolerated: Yes Activity Instructions: Avoid Stress to Incision Driving Instructions: No Driving/Refer to Diet Discharge Diet: Avoid Fatty Foods, Low Fat/Low Cholesterol Diet After 24 Hours: Clear Liquid if Nauseous If Any Problems/Questions/Issu: Contact Your Physician, Go to Emergency Room Skin/Wound Care Infection Signs and Symptoms: Increased Redness, Foul Odor of Wound, Increased Drainage, Skin Itchy or Has a Rash, Increased Swelling, Temperature Above 101 F Wound Care Comment: heating pad to shoulder or neck for pain Bathing Instructions: Shower Stitches/[place]/Dermabond Dis: Dermabond Ice Pack: Ice On and Off Site (at incisions as needed) TONY MEADOWS DO Jun 02, 2020 10:54
[2020-06-02] MEDS ORDERED: morphine INJ 10 MG/ML 1ML (SYR OR VIAL) IVP ONE (11:15)
[2020-06-02] MEDS ORDERED: ONDANSETRON 4 MG/2 ML (SDV) Z0FRAN IVP PRN (11:15)
[2020-06-02] MEDS ORDERED: HYDROmorphone 2 MG/ML VIAL (DILAUDID) IV ONE (11:15)
--- NOTE | 2020-06-02 11:43 | Diagnostic Imaging Report ---
INDICATION: Abdominal pain. Vomiting. Constipation. COMPARISON: CT dated 06/01/2020 Total fluoroscopy time: 7.9 seconds. Total number of fluoroscopic images saved: 34 FINDINGS: Fluoroscopic guidance was provided intraoperatively during cholangiogram. Contrast opacifies the common bile duct as well as the left and right biliary ducts. No obstructive filling defects are seen. Contrast empties into the small bowel, as expected. Please note, interpreting radiologist was not present during the procedure. IMPRESSION: 1. Fluoroscopic guidance provided intraoperatively as described above. Dictated by: Dictated on workstation # [id number]
--- NOTE | 2020-06-02 11:55 | Consultation ---
HPI History of Present Illness: HPI/Chief Complaint CC: Abdominal pain from acute cholecystitis HPI: This is a 64yoWM who presented to the ER with abdominal pain found to have acute cholecystitis with leukocytosis and elevated liver enzymes. Pt received s upportive care and underwent and uncomplicated cholecystectomy by Dr. Palm. I met him in recovery. He reports that he has not seen a doctor in ten years and he has overall been very healthy. He is retired from 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 He is originally from [facility] and he has been for 20 years. He does not smoke or drink alcohol and I will have him establish care in my clinic upon discharge. Source: patient, RN/MD, old records Exam Limitations: no limitations Date Seen 06/02/20 Attending Physician Chauncey Palm DO PCP No,Local Physician Referring Physician Date of Admission Jun 01, 2020 at 21:00 Home Medications & Allergies Home Medications Reviewed patient Home Medication Reconciliation performed by pharmacy medication reconciliations body and frame technician and/or nursing. Patients Allergies have been reviewed. Allergies Allergies Coded Allergies No Known Drug Allergies (Unverified06/01/20) Past Trkuhqa-Hubnyi-Drtccm Hx Past Med/Social Hx: Reviewed Nursing Past Med/Soc Hx, Reviewed and Corrections made Patient Social History Marrital Status: (20 years) Employed/Student: retired ([employer] 16 years after [place] [employer], raised in [place], [place]) Alcohol Use: Denies Use Recreational Drug Use: No Smoking Status: Former Smoker Former Smoker, Quit: Jun 02, 1980 Recent Foreign Travel: No Contact w/other who traveled: No Recent Hopitalizations: No Recent Infectious Disease Expo: No Immunizations Up To Date Tetanus Booster (TDap): Less than 5yrs Pediatric: Yes Seasonal Allergies Seasonal Allergies: Yes Past Medical History Surgeries: Gallbladder (06/02/20 Dr Palm) Currently Using CPAP: No Currently Using BIPAP: No Reproductive: No Loss of Vision: Denies Hearing Impairment: Denies History of Blood Disorders: No Family History CAD Over 55 Years Old (father [place], first at 70 yo, at 93 y.o. "of old age") Review of Systems Constitutional: see HPI Gastrointestinal: abdominal pain, loss of appetite, nausea, vomiting Physical Exam Physical Exam Vital Signs Vital Signs - First Documented 06/01/20 19:27 Temp 36.8 Pulse 122 Resp 24 B/P (MAP) 166/93 (117) Pulse Ox 98 O2 Delivery Room Air Capillary Refill : Less Than 3 SecondsLess Than 3 Seconds Height, Weight, BMI Height: '" Weight: lbs. oz. kg; 27.95 BMI Method: General Appearance: No Apparent Distress, WD/WN Eyes: Bilateral Eye PERRL, Bilateral Eye EOMI HEENT: PERRL/EOMI, Normal ENT Inspection, Pharynx Normal, Moist Mucous Membranes; No Pale Conjunctivae (L), No Pale Conjunctivae (R), No Scleral Icterus (L), No Scleral Icterus (R) Neck: Full Range of Motion, Non Tender, Supple Respiratory: Chest Non Tender, Lungs Clear, Normal Breath Sounds, No Accessory Muscle Use, No Respiratory Distress Cardiovascular: Regular Rate, Rhythm, No Edema, No Gallop, No JVD, No Murmur, Normal Peripheral Pulses Gastrointestinal: Abnormal Bowel Sounds (hyperactive (pt passed bm after talking to me)); No Distended, No Guarding; Hernia (umbilical); No Rebound; Tenderness (mild left periumbilical tenderness, minimal RUQ tenderness) Rectal: Deferred Back: No CVA Tenderness, No Vertebral Tenderness Extremity: Normal Capillary Refill, Non Tender, No Calf Tenderness, No Pedal Edema Neurologic/Psychiatric: Alert, Oriented x3, No Motor/Sensory Deficits, Normal Mood/Affect Skin: Normal Color, Warm/Dry Lymphatic: No Adenopathy (neck, axilla or groin) Results Results/Procedures Labs Laboratory Tests 06/01/20 19:52 06/02/20 05:39 Patient resulted labs reviewed. Assessment/Plan Assessment and Plan Assess & Plan/Chief Complaint Assessment: Acute cholecystitis Elevated LFT's Leukocytosis Former smoker Plan: Monitor pain Establish PCP Diagnosis/Problems Diagnosis/Problems (1) Cholecystitis (2) Nausea and vomiting Status: Acute Qualifiers: Vomiting type: bilious vomiting Qualified Codes: R11.14 - Bilious vomiting (3) Abdominal pain ANTONIO TONY DO Jun 02, 2020 11:55
--- NOTE | 2020-06-02 12:49 | Anesthesia-General Post-Op ---
General Patient Condition Mental Status/LOC: Same as Preop Cardiovascular: Satisfactory Nausea/Vomiting: Absent Respiratory: Satisfactory Pain: Controlled Complications: Absent Post Op Complications Complications None Follow Up Care/Instructions Patient Instructions None needed. Anesthesia/Patient Condition Patient Condition Patient is doing well, no complaints, stable vital signs, no apparent adverse anesthesia problems. ORIANA DAIGLE DO Jun 02, 2020 12:49
== END 2020-06-02 12:35 | disposition home or self-care (01) ==
LOC: ER 19:10 → 4TH 21:00 → UNDOADMOB 21:00 → SDC 21:00 → 4TH 21:00 → UNDODISOB 06-02 12:35 → SDC 06-02 12:35
PROVIDERS: ATTEND Surgery
DX: K80.12 Calculus of gallbladder with acute and chronic cholecystitis without obstruction (principal); K59.00 Constipation, unspecified; E66.01 Morbid (severe) obesity due to excess calories; Z68.28 Body mass index [BMI] 28.0-28.9, adult; Z79.899 Other long term (current) drug therapy; Z87.891 Personal history of nicotine dependence
CPT/HCPCS: 36415; 74176; 76000; 80053; 80061; 81000; 82150; 83036; 83690; 83880; 84443; 85007; 85025; 85027; 85610; 85730; 86141; 87081; 88304; 96374; 96375; 96376